=== PATIENT | female | born 1965 ===

== ENCOUNTER 2024-10-19 07:30 | Inpatient (IN) | payer OTHER ==
[~2024-10-19] VITALS: Ht 175.3 cm; Wt 86.6 kg
[2024-10-19] MEDS ORDERED: ATACAND4 MG PO (08:54)
[2024-10-19] MEDS ORDERED: CRESTOR40 MG (08:54)
[2024-10-19 08:59] VITALS: BP 118/84
[2024-10-19 09:05] LABS: BASO % 0.9 % (0.1-1.2); EOS # 0.15 (0.04-0.54); EOS % 3.4 % (0.7-7.0); HEMATOCRIT 42.4 % (34.1-44.9); HEMOGLOBIN 14.1 g/dL (11.2-15.7); LYMPH # 1.31 (1.18-3.74); MEAN CORPUSCULAR HEMOGLOBIN 30.4 pg (25.6-32.2); MONO # 0.38 (0.24-0.82); MONO % 8.7 % (4.7-12.5); NEUT # 2.48 (1.56-6.13); NEUT % 56.8 % (34.0-71.1); PH,URINE 5.5 (5.0-8.0); PLATELET COUNT 180 K/uL (163-369); RED BLOOD COUNT 4.64 M/uL (3.93-5.22); RED CELL DISTRIBUTION WIDTH 12.6 % (11.6-14.4); URINE APPEARANCE Clear; URINE BILIRRUBIN Negative (NEGATIVE); URINE BLOOD Trace; URINE COLOR Yellow; URINE GLUCOSE Negative (NEGATIVE); URINE KETONE Negative (NEGATIVE); URINE LEUKOCYTE Negative; URINE NITRATE Negative; URINE PROTEIN Negative (NEGATIVE); URINE UROBILINOGEN 0.2 E.U./dl
[2024-10-19 09:09] LABS: URINE RBC 11.9 uL (0.0-20.8)
[2024-10-19 09:38] LABS: INR 1.03; PARTIAL THROMBOPLASTIN TIME 26.4 SECONDS (22.0-34.0); PROTHROMBIN TIME 11.2 SECONDS (9.0-11.5)
[2024-10-19 09:40] LABS: URINE BACTERIA 2.4 uL (0.0-1933); URINE CAST 0.29 uL (0.0-1.40); URINE WBC 1.1 uL (0.0-23.2)
[2024-10-19 09:44] LABS: BILIRUBIN TOTAL 1.24 mg/dL (0.3-1.2); CALCIUM 10.4 mg/dL (8.5-10.1); CREATININE SERUM 0.66 mg/dL (0.55-1.02); GFR 91.66; GLOBULINA 3.1 G/DL (2.4-3.5); POTASSIUM 5.53 mEq/L (3.5-5.1); TOTAL PROTEIN 7.1 gm/dL (6.4-8.2)
[2024-10-25] MEDS ORDERED: DEXAMETHASONE SODIUM PHOSPHATE 4 MG/ML VIAL ONE (09:14)
[2024-10-25] MEDS ORDERED: ENALAPRILAT DIHYDRATE 1.25 MG/ML VIAL IV PRN (13:30)
[2024-10-25] MEDS ORDERED: ONDANSETRON HCL 2 MG/ML VIAL IV PRN (13:30)
[2024-10-25] MEDS ORDERED: GABAPENTIN 300 MG CAPSULE PO ONE (13:45)
[2024-10-25] MEDS ORDERED: ACETAMINOPHEN 500 MG GEL..CAP PO ONE (13:45)
[2024-10-25] MEDS ORDERED: CYCLOBENZAPRINE HCL 5 MG TABLET PO SCH (13:53)
[2024-10-25] MEDS ORDERED: ACETAMINOPHEN 500 MG GEL..CAP PO SCH (17:00)
[2024-10-25] MEDS ORDERED: DIPHENHYDRAMINE HCL 150 MG,LIDOCAINE HCL 60 ML,MAG HYDROX/ALUMINUM HYD/SIMETH 60 ML PO SCH (17:00)
[2024-10-25] MEDS ORDERED: GABAPENTIN 100 MG CAPSULE PO SCH (17:00)
[2024-10-25 19:00] VITALS: BP 137/85; O2SAT 98
[2024-10-25 19:22] VITALS: O2SAT 97
[2024-10-25] MEDS ORDERED: MAG HYDROX/ALUMINUM HYD/SIMETH 30 ML BLIST.PACK PO ONE (20:22)
[2024-10-25] MEDS ORDERED: PANTOPRAZOLE SODIUM 40 MG/VIAL VIAL IV PUSH SCH (21:00)
[2024-10-26] VITALS: BP 121/80; O2SAT 90; O2SAT 95
[2024-10-26] MEDS ORDERED: ENOXAPARIN SODIUM 40 MG/0.4 ML SYRINGE SUBCUTANEO SCH (01:00)
[2024-10-26 05:27] VITALS: O2SAT 90
[2024-10-26] MEDS ORDERED: MAG HYDROX/ALUMINUM HYD/SIMETH 30 ML BLIST.PACK PO ONE ×2 (07:19→16:20)
[2024-10-26 08:00] VITALS: BP 120/77; O2SAT 96
[2024-10-26] MEDS ORDERED: CANDESARTAN CILEXETIL 8 MG TAB PO SCH (09:00)
[2024-10-26 09:19] VITALS: O2SAT 93
[2024-10-26] MEDS ORDERED: ENOXAPARIN SODIUM 40 MG/0.4 ML SYRINGE SUBCUTANEO ONE (15:30)
[2024-10-26 16:24] VITALS: O2SAT 99
[2024-10-26 16:34] VITALS: BP 134/67; O2SAT 97
== END 2024-10-26 18:59 | disposition home or self-care (01) | DRG 627 ==
LOC: O/R 10-25 05:30 → SURH 10-25 07:30
PROVIDERS: ADMIT Surgery; ATTEND Surgery
PROC: 0GBQ0ZZ Excision of Multiple Parathyroid Glands, Open Approach (ICD-10-PCS; 2024-10-25)
PROC: 0GBM0ZZ Excision of Left Superior Parathyroid Gland, Open Approach (ICD-10-PCS; 2024-10-25)
PROC: 4A12X4Z Monitoring of Cardiac Electrical Activity, External Approach (ICD-10-PCS; 2024-10-25)
PROC: 0GBP0ZZ Excision of Left Inferior Parathyroid Gland, Open Approach (ICD-10-PCS; principal; 2024-10-25 10:15)
PROC: B246ZZZ Ultrasonography of Right and Left Heart (ICD-10-PCS; 2024-10-26)
DX: D35.1 Benign neoplasm of parathyroid gland (principal); E21.0 Primary hyperparathyroidism; I10 Essential (primary) hypertension; R07.89 Other chest pain